=== PATIENT | female | born 1980 | race Caucasian/White ===

== ENCOUNTER 2022-06-19 07:54 | Emergency (ER) | payer BC, SELFPAY ==
[2022-06-19 08:34] VITALS: BP 126/74; PULSE 85; RESP 18; TEMP 36.6; O2SAT 97; BMI 21.8
--- NOTE | 2022-06-19 09:16 | CRLHL7_ITS ---
For Patients: As a result of the Century Cures Act, medical imaging exams and procedure reports are released immediately into your electronic medical record. You may view this report before your referring provider. If you have questions, please contact your health care provider. INDICATION: Left lower quadrant pelvic pain. TECHNIQUE: Ultrasound pelvis transvaginal for better assessment or to better visualize the endometrium. Real-time sonographic images with spectral and color Doppler imaging of the ovaries were obtained. COMPARISON: 01/02/2018. FINDINGS: Post hysterectomy. Right ovary 4.0 x 2.4 x 2.2. Left ovary 4.9 x 2.7 x 3.5. Small complex cystic lesion is in the left ovary. No other adnexal lesions. Normal arterial and venous blood flow is demonstrated in both ovaries. Cul-de-sac: No significant free fluid. IMPRESSION: Possible small hemorrhagic follicle or cyst in the left ovary. This is almost certainly benign and does not require further evaluation. Remainder of the exam is unremarkable. Dictated by Matti Hassan MD @ 06/19/2022 11:06:09 AM (Electronically Signed)
[2022-06-19] MEDS: 0.9 % SODIUM CHLORIDE 1000 ml 1,000 ML IV (09:54)
[2022-06-19] MEDS: KETOROLAC 30 MG/ML inj IVP (09:54)
[2022-06-19 10:01] LABS: Basophils Absolute Auto 0.04 K/uL (0.00-0.30); Basophils Percent Auto 0.5 % (0.0-3.0); Eosinophils Absolute Auto 0.06 K/uL (0.00-0.50); Eosinophils Percent Auto 0.7 % (0.0-7.0); Hematocrit 38.2 % (33.0-51.0); Hemoglobin* 12.9 gm/dL (12.0-16.0); Immature Granulocytes Abs Auto 0.01 K/uL (0.00-0.30); Lymphocytes Percent Auto 16.7 % (20-44); Mean Corpuscular HGB Conc 34 gm/dL (32-36); Mean Corpuscular Hemoglobin 32 pg (26-34); Mean Corpuscular Volume 93 fL (80-100); Monocytes Percent Auto 6.2 % (0.0-11.0); Neutrophils Percent Auto 75.8 % (42.0-72.0); Platelet Count* 224 K/uL (140-440); RDW Coefficient of Variation % 12.8 % (11.5-15.5); Red Blood Count 4.09 m/uL (4.00-5.20); White Blood Count* 8.02 K/uL (4.50-11.00)
--- NOTE | 2022-06-19 10:06 | ED_ITS ---
HPI - Abdominal Pain General Date Seen: 06/19/22 Chief Complaint: Abdominal Pain Stated Complaint: Left side lower abdominal/back pain Time Seen by Provider: 06/19/22 08:06 Source: patient Mode of arrival: ambulatory Limitations: no limitations History of Present Illness HPI narrative: Patient is a very nice 41-year-old female who presents here for left lower quadrant pain. Pain is been present for the last 3-4 days, is more now radiating to her back, and was not before in the last 12 hours. She has noted no real symptoms of dysuria frequency, couple loose stools yesterday, but no bl ood or any other abnormality within it. She initially thought this was her normal ovarian cyst she has had a couple these in the past. She did have a hysterectomy done with the primary indication I believe of endometriosis. Follow-up for this was somewhat hailey, she did have a vaginal cuff infection, and was on antibiotics for 5 weeks. She took some Tylenol some ibuprofen for the discomfort, and at really has not done a lot. Because of her concern that maybe this is pyelonephritis, or kidney infection she has come in. No history of fevers chills, nausea vomiting, her appetites been okay, denies any other systemic symptoms such as coughing shortness of breath sore throat, neck pain, Related Data Home Medications Medication Instructions Recorded Confirmed No Known Home Medications 06/19/22 06/19/22 Allergies Allergy/AdvReac Type Severity Reaction Status Date / Time No Known Drug Allergies Allergy Verified 06/19/22 08:37 Review of Systems Status of ROS Reports: 10 or more systems reviewed and unremarkable except as noted in History and below PFSH [facility] Social History Smoking Status: Unknown if ever smoked Do you use any of these nicotine containing products: None Second hand tobacco smoke exposure: No service: No Exam Narrative: Exam Narrative: Patient is a stephanie lady in room 3 in no apparent distress, her pupils are equal round reactive to light, there is no scleral icterus or redness, her TMs are normal, oropharynx is normal. Her hydration status is normal, her neck is supple full range of motion is elicited, with absence of meningismus. Chest is clear bilaterally with no wheezing crackles noted, easy respirations are noted, no signs of respiratory distress. Heart sounds no clicks murmurs or gallops, S1-S2 is normal, there is no S3-S4 notable with this. Abdomen is soft, scaphoid, some tenderness is noted in the left lower quadrant on deep palpation, her bowel sounds are normal, I do not see any significant scarring of her abdomen, some mild left-sided CVA tenderness is noted, no percussion tenderness is noted over her L-spine, there is no palpable abnormality, SLR is are negative bilaterally to 90?. With no augmentation. Const: Vital Signs, click to edit/add: Vital Signs - 24 hr 06/19/22 08:34 06/19/22 11:00 06/19/22 10:55 Temperature 97.8 F Pulse Rate [Pulse Oximeter] 85 66 66 Respiratory Rate 18 16 16 Blood Pressure [Ri ght Upper Arm] 126/74 122/75 113/66 Pulse Oximetry 97 100 100 Oxygen Delivery Me thod Room Air Room Air Room Air Course Course Hospital Course: I spoke to the patient her pain is better, her ultrasound was consistent with a hemorrhagic cysts ovarian cyst on the left side which is likely accounting for her pain. Her white count urinalysis were all normal. We talked that she has had this before. The Tylenol ibuprofen along with something to help her sleep at night would be reasonable. She has had good results with hydrocodone I will give her a small supply of this. I do recommend that she follow-up with her OBGYN for further delineation possible hormonal treatment. We will give her copy of ultrasound. Vital Signs Vital signs: Initial Vital Signs Temperature 97.8 F 06/19/22 08:34 Temperature Source Temporal Artery Scan 06/19/22 08:34 Pulse Rate 85 06/19/22 08:34 Respiratory Rate 18 06/19/22 08:34 Blood Pressure 126/74 06/19/22 08:34 Blood Pressure Mean 91 06/19/22 08:34 Blood Pressure Position Sitting 06/19/22 08:34 Pulse Oximetry 97 06/19/22 08:34 Oxygen Delivery Method 06/19/22 08:34 Vital Signs Temperature 97.8 F 06/19/22 08:34 Pulse Rate 85 06/19/22 08:34 Respiratory Rate 18 06/19/22 08:34 Blood Pressure 126/74 06/19/22 08:34 Pulse Oximetry 97 06/19/22 08:34 Oxygen Delivery Method 06/19/22 08:34 Temperature 97.8 F 06/19/22 08:34 Pulse Rate 66 06/19/22 11:00 Respiratory Rate 16 06/19/22 11:00 Blood Pressure 122/75 06/19/22 11:00 Pulse Oximetry 100 06/19/22 11:00 Oxygen Delivery Method 06/19/22 11:00 MDM - Abdominal Pain MDM Narrative Medical decision making narrative: During the evaluation of this patient I considered multiple differential diagnosis including life-threatening differentials which are appendicitis, aortic aneurysm, mesenteric ischemia, bowel perforation, ectopic , volvulus and bowel obstruction, other differential diagnosis include but are not limited to inflammatory bowel disease, cholecystitis, pancreatitis, hepatitis, gastritis, GERD, diverticulitis, peptic ulcer disease, pyelonephritis/UTI, renal colic/stone, pelvic inflammatory disease, cervicitis, endometritis, intrauterine , dysfunctional uterine bleeding, ovarian cyst/torsion, spontaneous as well as other etiologies I think we will do start an IV will give her some Toradol for the pain, I will do a pelvic ultrasound does I believe this is more likely rate ovarian cause, urinalysis CBC CRP will also be done. Since it is on the left side I think there is a lower likelihood that this is acute appendicitis, or diverticulitis, but those are also included. Differential Diagnosis Differential diagnosis: Likely abdominal pain, acute appendicitis, calculus of kidney, constipation, diverticulitis, endometriosis, gastroenteritis, pancreatitis and small bowel obstruction Medical Records Attestation: I reviewed the patient's medical records. Lab Data Attestation: I reviewed the patient's lab results. Labs: Lab Results 06/19/22 06/19/22 06/19/22 Range/Units 09:45 09:45 10:03 WBC 8.02 (4.50-11.00) K/uL RBC 4.09 (4.00-5.20) m/uL Hgb 12.9 (12.0-16.0) gm/dL Hct 38.2 (33.0-51.0) % MCV 93 (80-100) fL MCH 32 (26-34) pg MCHC 34 (32-36) gm/dL RDW Coeff of Dylan 12.8 (11.5-15.5) % Plt Count 224 (140-440) K/uL Neut % (Auto) 75.8 H (42.0-72.0) % Lymph % (Auto) 16.7 L (20-44) % [place] % (Auto) 6.2 (0.0-11.0) % Eos % (Auto) 0.7 (0.0-7.0) % Baso % (Auto) 0.5 (0.0-3.0) % Neut # (Auto) 6.10 (1.7-7.0) K/uL Lymph # (Auto) 1.30 (0.90-2.90) K/uL [place] # (Auto) 0.50 (0.00-0.90) K/UL Eos # (Auto) 0.06 (0.00-0.50) K/uL Baso # (Auto) 0.04 (0.00-0.30) K/uL Abs Immat Gran (auto) 0.01 (0.00-0.30) K/uL Sodium 137 (135-149) mmol/L Potassium 4.2 (3.6-5.1) mmol/L Chloride 106 (96-114) mmol/L Carbon Dioxide 25 (20-32) mmol/L BUN 8 (5-24) mg/dL Creatinine 0.8 (0.5-1.5) mg/dL Estimated Creat Clear 109.34 Estimated GFR 95 ml/min Glucose 99 (60-115) mg/dL Calcium 8.9 (8.4-10.6) mg/dL C-Reactive Protein < 0.5 L (0.5-1.0) mg/dL Urine Color Yellow (Yellow) Urine Appearance Slightly Cloudy A (Clear) Urine pH 6.5 (5.0-8.5) Ur Specific [place] 1.025 (1.000-1.030) Urine Protein Negative (Negative) Urine Glucose (UA) Negative (Negative) Urine Ketones Trace A (Negative) Urine Blood Negative (Negative) Urine Nitrite Negative (Negative) Urine Bilirubin Negative (Negative) Urine Urobilinogen 0.2 (0.2-1.0) Ur Leukocyte Esterase Negative (Negative) Urine RBC 0-2 (0-2) Urine WBC 0-2 (0-5) Ur Squamous Epith Cells Moderate A (None-Few) Urine Bacteria None (None) Imaging Data Pelvic ultrasound: Attestation: I have reviewed the pertinent imaging results. Radiologist's impression: Patient: VIVIAN MAR Facility: [facility] Site . Site : 1980 Study: US Pelvis PELVIS TV-06/19/2022 10:25:12 AM Ordering Physician: Trace Rivera Final Report: INDICATION: Left lower quadrant pelvic pain. TECHNIQUE: Ultrasound pelvis transvaginal for better assessment or to better visualize the endometrium. Real-time sonographic images with spectral and color Doppler imaging of the ovaries were obtained. COMPARISON: 01/02/2018. FINDINGS: Post hysterectomy. Right ovary 4.0 x 2.4 x 2.2. Left ovary 4.9 x 2.7 x 3.5. Small complex cystic lesion is in the left ovary. No other adnexal lesions. Normal arterial and venous blood flow is demonstrated in both ovaries. Cul-de-sac: No significant free fluid. IMPRESSION: Possible small hemorrhagic follicle or cyst in the left ovary. This is almost certainly benign and does not require further evaluation. Remainder of the exam is unremarkable. Dictated by Matti Hassan MD @ 06/19/2022 11:06:09 AM (Electronic Signature) Discharge Plan Discharge Clinical Impression: Abdominal pain, Hemorrhagic cyst of left ovary Patient Disposition: Home, Self-Care Condition: Stable Instructions: Ovarian Cyst (ED), Abdominal Pain (ED) Additional Instructions: Home rest use of ibuprofen and Tylenol, supplemented with the hydrocodone at night time to sleep, consider follow-up with your OBGYN for further evaluation, and possible consideration for hormonal treatment for this. Return here if increasing abdominal pain nausea vomiting, or other issues which would make me worry, The cyst is very small but these can cause irritation much like your describing. Prescriptions: No Action No Known Home Medications Follow Up/Referrals: Juanita Burt MD [Primary Care Provider] - Stand Alone Forms: [employer] Info Instructions
[2022-06-19 10:07] LABS: Slide Review Reflex No
[2022-06-19 10:09] LABS: Appearance Urine Slightly Cloudy (Clear); Bilirubin Urine Negative (Negative); Blood Urine Negative (Negative); Color Urine Yellow (Yellow); Glucose Urine Negative (Negative); Ketones Urine Trace (Negative); Leukocyte Esterase Urine Negative (Negative); Nitrite Urine Negative (Negative); Protein Urine Negative (Negative); Specific Gravity Urine 1.025 (1.000-1.030); Urobilinogen Urine 0.2 (0.2-1.0); pH Urine 6.5 (5.0-8.5)
[2022-06-19 10:14] LABS: Chloride* 106 mmol/L (96-114); Potassium* 4.2 mmol/L (3.6-5.1); Sodium* 137 mmol/L (135-149)
[2022-06-19 10:17] LABS: Creatinine* 0.8 mg/dL (0.5-1.5); Est. Creatinine Clearance* 109.34; Estimated Glomerular Filt Rate 95 ml/min
[2022-06-19 10:18] LABS: Blood Urea Nitrogen* 8 mg/dL (5-24); Calcium* 8.9 mg/dL (8.4-10.6); Carbon Dioxide* 25 mmol/L (20-32); Glucose* 99 mg/dL (60-115)
[2022-06-19 10:22] LABS: RBC Urine 0-2 (0-2); Squamous Epithelial Cell Urine Moderate (None-Few); WBC Urine 0-2 (0-5)
[2022-06-19 10:22] LABS: C Reactive Protein* < 0.5 mg/dL (0.5-1.0)
[2022-06-19 10:55] VITALS: BP 113/66; PULSE 66; RESP 16; O2SAT 100
[2022-06-19 11:00] VITALS: BP 122/75; PULSE 66; RESP 16; O2SAT 100
== END 2022-06-19 11:52 | disposition home or self-care (01) ==
PROVIDERS: Emergency Provider Family Medicine; PCP Family Medicine
DX: N83.202 Unspecified ovarian cyst, left side (principal)
CPT/HCPCS: 36415; 76830; 80048; 81001; 85025; 86140; 96361; 96374; 99284; J1885; J7030

== ENCOUNTER 2024-09-23 12:24 | Emergency (ER) | payer BC, SELFPAY ==
--- OUTSIDE RECORDS SUMMARY | 2024-09-23 12:26 | XMS_ITS | Clinical Summary ---
Author Organization [employer] [facility] [employer] Address [place], [place] [address] Care Team Providers Care Sheriff'S Officer Name Role Phone Pcp, No Primary Care Provider Unavailabl e Allergies Active Allergy Reactions Criticality Noted Date Comments Venom-Honey Bee Anaphylaxis High 02/19/2011 Venlafaxine Analogues Rash 12/18/2007 Medications EPIPEN 2-JAMAL 0.3 mg/0.3 mL injectionIndic ations:Hymenop sienna allergy INJECT 1 SYRINGE INTRAMUSCULARLY ONE TIME IF NEEDED FOR ALLERGIC REACTION 1 Each 0 05/16/20 16 Active cranberry oolr-T-ywinmce s coag (AZO CRANBERRY + PROBIOTIC) 250-30-50 id-eo-zyjmkuj tab Take by mouth. 0 05/05/20 19 Active clotrimazole (LOTRIMIN) 1 % creamIndicatio ns:Rash Apply topically to affected area(s) 2 times daily. 12 g 12/28/19 20 Active hydrocortisone valerate (WESTCORT) 0.2 % creamIndicatio ns:Rash Apply topically to affected area(s) 2 times daily. Use for no more than 5-7 days for itching or inflamed skin 15 g 12/28/19 20 Active Additional Information Patient not taking.Reported on 06/21/2023 hydrocortisone (ANUSOL-HC) 2.5 % rectal creamIndicatio ns:Hemorrhoids , external Apply topically to affected area(s) two times daily. Do not use for more than 7 days during a flare. 28 g 06/05/20 23 Active Additional Information Patient not taking.Reported on 06/21/2023 Active Problems Problem Noted Date Diagnosed Date C. difficile diarrhea 03/26/2018 Overview (03/26/2018): After taking clindamycin February 2018 Granulation tissue of vaginal cuff 01/04/2018 Pelvic abscess in female 01/04/2018 Overview (01/04/2018): Very small 1.5 cm fluid collected post hysterectomy Uterine leiomyoma 09/26/2017 History of hysterectomy Overview (09/17/2023): Provider plan: Per 09/12/2023 encounter, no further paps needed 10/2017 Hysterectomy, cervix removed 10/2016 NIL / HPV negative 08/2015 NIL / HPV negative Negative HPV testing 2013 NIL Pap tests 2005, 2007, 2008, 2010, 2011 and 10/22 LEEP FEMI 2-3; margins clear Pelvic pain Resolved Problems Problem Noted Date Diagnosed Date Resolved Date Supervision of other high-ri (V23.89) 01/08/2011 05/28/2011 Adjustment disorder with mix ed anxiety and depressed mood 02/16/2009 11/04/2014 Internal hemorrhoids without mention of complication 08/18/2008 11/04/2014 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 Needs yearly pap smears until 2025. Immunizations Name Administration Dates Next Due COVID-19 vaccine ([place] Stem Cell NTTunesat 30mcg/0.3mL) PF, MDV 05/23/2021,05/01/2021 05/22/2021 DTP 02/04/1986, 1,02/01/1981,11/09 DTaP 04/09/1986 HIB HbOC (HibTITER) 02/01/1981,1980 Hepatitis A (Adult) 12/18/2007 Influenza, IIV3 (Age >=3 years) 06/23/2012,10/09 Influenza, IIV4 08/25/2015 MMR 11/14/1993,02/10/1982 Oral Polio Vaccine 04/09/1986, 1,02/01/1981,11/09 Td (Age >=7 Years) 11/14/1993 Td, Preservative Free (age > = 7 Years) 10/20/2018 Tdap 12/18/2007 Family History Medical History Relation Name Comments Other Maternal Aunt chronic headac he Heart Disease Maternal Grandfather Arthritis Mother Cancer-breast Mother age 51 Psychiatric illness Mother depressi on Relation Name Status Comments Brother Alive Daughter Alive Father Alive Maternal Aunt Maternal Grandfather Mother Alive Sister Alive Son 1 Alive Son 2 Alive Social History Tobacco Use Types Packs/Day Years Used Date Smoking Tobacco: Former Cigarettes 0.3 3 0 09/16/1999 - 09/16/2002 Smokeless Tobacco: Never Tobacco Cessation:Counseling Given: Yes Comments:college; socially Alcohol Use Standard Drinks/Week Comments Yes 3 (1 standard drink = 0.6 oz pure alcohol) 1 glass wine or 2 beers on weekend PHQ-2 Answer Date Recorded PHQ-2 TOTAL SCORE 1 09/28/2021 Social Connections Answer Date Recorded Frequency of Communication with Friends and Fami ly Not on file 09/16/2021 Financial Resource Strain Answer Date R ecorded Difficulty of Paying Living Expenses Not on file 09/16/2021 Difficulty of Paying Living Expenses Not on file 09/16/2021 Comments No Sex and Gender Information Value Date Recorded Sex Assigned at Not on file Legal Sex Female 5:17 AM STUDENT ASSISTANCE COUNSELOR Gender Identity Not on file Sexual Orientation Not on file 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 on file Not on file Not on file Obstetrics History Para Term AB IAB SAB Ectopic Multiple Livin g Live Births 2 2 0 2 0 0 0 0 1 3 3 Date Outcome GA Total Labor Labor/2nd/3rd Weight Sex Type Anes PTL Ashley A1 A5 Name Clin 2003 29w 4d 1.81 kg (3 lb 15.9 oz) M Vag Livin g 29w 4d 1.39 kg (3 lb 1 oz) M Vag Livin g 2010 35w 3d 12h 00m/ 2.72 kg (6 lb) F Vag Livin g 7 8 Cyn[place] Delivery Location:[facility] Comments:EDC 05/05/11 Last Filed Vital Signs Vital Sign Reading Time Taken Comments Blood Pressure 125/81 06/21/2023 2:26 PM CDT Pulse 96 06/21/2023 2:26 PM CDT Temperature 36.7 C (98 F) 05/05/2019 2:06 PM CDT Respiratory Rate 16 01/04/2018 8:00 AM CDT Oxygen Saturation 100% 06/21/2023 2:26 PM CDT Inhaled Oxygen Concentration - - Weight 77.2 kg (170 lb 3.2 oz) 06/21/2023 2:26 P M CDT Height 185.4 cm (6' 1) 05/05/2019 2:06 PM CDT Body Mass Index 22.46 05/05/2019 2:06 PM CDT Plan of Treatment Health Maintenance Due Date Last Done Comments Hepatitis C screening for age 18-79 1998 BMI (ht and wt on same day) for age 18+ 05/05/2020 05/05/2019, 11/24/2018, 11/03/2018, Additional history exists Depression screening for age 12+ 09/28/2022 09/28/2021, 11/12/2018, 10/20/2018, Additional history exists COVID-19 vaccine series ( season) 2024 05/23/2021, 05/01/2021 Influenza for age 9-49 05/17/2024 5, 06/23/2012, 10/09/2010 Tetanus booster 10/20/2028 10/20/2018, 11/2007, 11/14/1993 Tdap Completed 12/18/2007 HIV for age 15-65 Completed 09/28/2021, , 04/06/2014, Additional history exists Pneumococcal series for age 6-49 Aged Out No longer eligible based on patient's age to complete this topic Procedures Procedure Name Priority Date/Time Associated Diagnosis Comments ANTI HIV 1/2 Add On 09/28/2021 4:37 PM STUDENT ASSISTANCE COUNSELOR Chronic night sweats from Last 3 Months or Most Recently Relevant to Health Maintenance Results * ANTI HIV 1/2 (09/28/2021 4:37 PM STUDENT ASSISTANCE COUNSELOR) HIV-1/HIV-2 ANTIBODY Non-Reacti ve Non-Reacti ve 09/30/2021 11:11 AM STUDENT ASSISTANCE COUNSELOR [facility] Comment:HIV-1 p24 and HIV-1/ HIV-2 Ab not detected. Blood BLOOD SPECIMEN / Unknown Venipuncture / Unknown 09/28/2021 4:37 PM STUDENT ASSISTANCE COUNSELOR 09/28/2021 4:37 PM STUDENT ASSISTANCE COUNSELOR us Juanita Burt MD SEND OUTS Final Result [facility] [address] [place] [address], [place] from Last 3 Months or Most Recently Relevant to Health Maintenance Additional Health Concerns Infection Onset Date Last Indicated MRSA Clearance Comment:Infection Control Note: Hx of MRSA, surveillance criteria met, no need for further testing or isolation precautions. Do not delete or deactivate the FYI. #1 nares 11/06/17 +MRSA 10/11/17 Lesion, Right Axilla 11/08/2017 11/08/2017 Insurance [facility] Advance Directives * Full Code (Latest Code Status on File) Date Activated Date Inactivated Comments 01/04/2018 2:09 AM 01/04/2018 3:53 PM Care Teams Sheriff'S Officer Relationship Specialty Start Date End Date Pcp, No . PCP - General 03/28/23
[2024-09-23 12:33] VITALS: BP 122/70; PULSE 91; RESP 16; TEMP 36.7; O2SAT 99; BMI 21.8
--- OUTSIDE RECORDS SUMMARY | 2024-09-23 14:25 | XMS_ITS | Clinical Summary ---
Author Organization [employer] [facility] [employer] Address [place], [place] [address] Care Team Providers Care Back Pad Inspector Name Role Phone Pcp, No Primary Care Provider Unavailabl e Allergies Active Allergy Reactions Criticality Noted Date Comments Venom-Honey Bee Anaphylaxis High 02/19/2011 Venlafaxine Analogues Rash 12/18/2007 Medications EPIPEN 2-JAMAL 0.3 mg/0.3 mL injectionIndic ations:Hymenop sienna allergy INJECT 1 SYRINGE INTRAMUSCULARLY ONE TIME IF NEEDED FOR ALLERGIC REACTION 1 Each 0 05/16/20 16 Active cranberry qnal-M-czxjyzj s coag (AZO CRANBERRY + PROBIOTIC) 250-30-50 yx-fa-ljkorlr tab Take by mouth. 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 on file Not [...] F Vag Livin g 7 8 [address] [place] Delivery Location:[facility] Comments:EDC 05/05/11 Last Filed Vital Signs Vital [...] HIV 1/2 Add On 09/28/2021 4:37 PM WEB APPLICATIONS PROGRAMMER Chronic night sweats from Last 3 Months or Most Recently Relevant to Health Maintenance Results * ANTI HIV 1/2 (09/28/2021 4:37 PM WEB APPLICATIONS PROGRAMMER) HIV-1/HIV-2 ANTIBODY Non-Reacti ve Non-Reacti ve 09/30/2021 11:11 AM WEB APPLICATIONS PROGRAMMER [facility] Comment:HIV-1 p24 and HIV-1/ HIV-2 Ab not detected. Blood BLOOD SPECIMEN / Unknown Venipuncture / Unknown 09/28/2021 4:37 PM WEB APPLICATIONS PROGRAMMER 09/28/2021 4:37 PM WEB APPLICATIONS PROGRAMMER us Juanita Burt MD SEND OUTS Final Result [facility] [address] [place] [address], [place] from Last 3 Months or Most Recently Relevant to Health Maintenance Additional Health Concerns Infection Onset Date Last Indicated MRSA Clearance Comment:Infection Control Note: Hx of MRSA, surveillance criteria met, no need for further testing or isolation precautions. Do not delete or deactivate the FYI. #1 nares 11/06/17 +MRSA 10/11/17 Lesion, Right Axilla 11/08/2017 11/08/2017 Insurance [facility] ADVANTAGE Advance Directives * Full Code (Latest Code Status on File) Date Activated Date Inactivated Comments 01/04/2018 2:09 AM 01/04/2018 3:53 PM Care Teams Back Pad Inspector Relationship Specialty Start Date End Date Pcp, No . PCP - General 03/28/23
== END 2024-09-23 14:24 | disposition left against medical advice (07) ==
LOC: ED 14:23
PROVIDERS: PCP Family Medicine
DX: Z53.21 Procedure and treatment not carried out due to patient leaving prior to being seen by health care provider (principal)